=== PATIENT | female | born 1960 | race Caucasian/White ===

== ENCOUNTER 2020-07-09 08:30 | Day surgery (SDC) | payer BC ==
[~2020-07-09] VITALS: Ht 165.1 cm; Wt 57.9 kg
[2020-07-09 09:02] VITALS: BP 140/75
[2020-07-09] MEDS ORDERED: AMLO2.5T2 PO (09:19)
[2020-07-09] MEDS ORDERED: ONDA8TAB13 PO (09:19)
[2020-07-09] MEDS ORDERED: SITA100T11 PO (09:19)
[2020-07-09] MEDS ORDERED: DENO120V (09:19)
[2020-07-09 09:50] VITALS: BP 140/75
[2020-07-09 10:20] VITALS: BP 126/89
== END 2020-07-09 10:20 | disposition home or self-care (01) ==
LOC: SSTAY O 08:30
PROVIDERS: ATTEND Radiology Diagnostic Radiology
DX: J90 Pleural effusion, not elsewhere classified (principal); I10 Essential (primary) hypertension; C78.7 Secondary malignant neoplasm of liver and intrahepatic bile duct; Z85.3 Personal history of malignant neoplasm of breast; Z98.890 Other specified postprocedural states; Z88.8 Allergy status to other drugs, medicaments and biological substances; Z79.899 Other long term (current) drug therapy
CPT/HCPCS: 32555; 71045

== ENCOUNTER 2020-07-23 08:37 | Day surgery (SDC) | payer BC ==
[~2020-07-23] VITALS: Ht 165.1 cm; Wt 57.9 kg
[~2020-07-23 08:37] MED LIST: AMLO2.5T2 PO; DENO120V; ONDA8TAB13 PO; SITA100T11 PO
[2020-07-23 08:50] VITALS: BP 140/85
[2020-07-23] MEDS ORDERED: albumin 25% 100mL bottle x 1 IV PRN (09:10)
[2020-07-23 10:25] VITALS: BP 140/85
[2020-07-23 10:29] VITALS: BP 146/90
== END 2020-07-23 10:45 | disposition home or self-care (01) ==
LOC: SSTAY O 08:37
PROVIDERS: ATTEND Radiology Vascular & Interventional Radiology
DX: J90 Pleural effusion, not elsewhere classified (principal); C50.412 Malignant neoplasm of upper-outer quadrant of left female breast; C78.7 Secondary malignant neoplasm of liver and intrahepatic bile duct; I10 Essential (primary) hypertension; Z98.890 Other specified postprocedural states; Z88.8 Allergy status to other drugs, medicaments and biological substances; Z79.899 Other long term (current) drug therapy
CPT/HCPCS: 32555; 49083; 71045

== ENCOUNTER 2020-08-09 09:22 | Day surgery (SDC) | payer BC ==
[2020-08-09 09:55] VITALS: BP_SYST 134; BP_SYST 153; BP_DIAS 79; BP_DIAS 88
[2020-08-09 10:15] VITALS: BP 141/72
[2020-08-09] MEDS ORDERED: CALC-729 PO (10:17)
[2020-08-09] MEDS ORDERED: PROC-8 PO (10:17)
[2020-08-09] MEDS ORDERED: LORA10TA65 PO (10:17)
[2020-08-09] MEDS ORDERED: MAGN100T5 PO (10:17)
[2020-08-09 10:30] VITALS: BP 134/78
[2020-08-09 10:45] VITALS: BP 131/78
== END 2020-08-09 11:00 | disposition home or self-care (01) ==
LOC: SSTAY O 09:22
PROVIDERS: ATTEND Radiology Diagnostic Radiology
DX: J90 Pleural effusion, not elsewhere classified (principal); I10 Essential (primary) hypertension; Z85.3 Personal history of malignant neoplasm of breast; Z98.890 Other specified postprocedural states; Z88.8 Allergy status to other drugs, medicaments and biological substances; Z79.899 Other long term (current) drug therapy
CPT/HCPCS: 32555; 71045

== ENCOUNTER 2020-09-25 07:38 | Day surgery (SDC) | payer BC ==
[~2020-09-25] VITALS: Ht 165.1 cm; Wt 59.7 kg
[~2020-09-25 07:38] MED LIST changes: +CALC-729 PO; -DENO120V; +LORA10TA65 PO; +MAGN100T5 PO; +PROC-8 PO
[2020-09-25] MEDS ORDERED: albumin 25% 100mL bottle x 1 IV PRN (08:10)
[2020-09-25 08:15] VITALS: BP 144/76
[2020-09-25 08:50] VITALS: BP 144/76
[2020-09-25 08:55] VITALS: BP 148/81
[2020-09-25 09:15] VITALS: BP 139/78
[2020-09-25 09:30] VITALS: BP 143/75
== END 2020-09-25 09:40 | disposition home or self-care (01) ==
LOC: SSTAY O 07:38
PROVIDERS: ATTEND Radiology Vascular & Interventional Radiology
DX: J90 Pleural effusion, not elsewhere classified (principal); I10 Essential (primary) hypertension; C78.7 Secondary malignant neoplasm of liver and intrahepatic bile duct; Z88.8 Allergy status to other drugs, medicaments and biological substances; Z98.890 Other specified postprocedural states; Z79.899 Other long term (current) drug therapy; Z85.3 Personal history of malignant neoplasm of breast
CPT/HCPCS: 32555; 71045

== ENCOUNTER 2020-10-30 09:02 | Day surgery (SDC) | payer BC ==
[~2020-10-30] VITALS: Ht 165.1 cm; Wt 56.3 kg
[2020-10-30 09:33] VITALS: BP 136/86
[2020-10-30] MEDS ORDERED: albumin 25% 100mL bottle x 1 IV PRN (09:35)
[2020-10-30] MEDS ORDERED: CAPE500T15 PO (09:39)
[2020-10-30 09:50] VITALS: BP 133/77
[2020-10-30 10:00] VITALS: BP 133/77
[2020-10-30 10:15] VITALS: BP 133/72
[2020-10-30 10:30] VITALS: BP 148/86
[2020-10-30 10:45] VITALS: BP 136/84
== END 2020-10-30 11:05 | disposition home or self-care (01) ==
LOC: SSTAY O 09:02
PROVIDERS: ATTEND Radiology Vascular & Interventional Radiology
DX: J90 Pleural effusion, not elsewhere classified (principal); I10 Essential (primary) hypertension; C50.412 Malignant neoplasm of upper-outer quadrant of left female breast; C78.7 Secondary malignant neoplasm of liver and intrahepatic bile duct; Z98.890 Other specified postprocedural states; Z79.899 Other long term (current) drug therapy
CPT/HCPCS: 32554; 32555; 71045

== ENCOUNTER 2020-11-15 11:34 | Day surgery (SDC) | payer BC ==
[~2020-11-15] VITALS: Ht 165.1 cm; Wt 52.1 kg
[~2020-11-15 11:34] MED LIST changes: -CALC-729 PO; +CAPE500T15 PO
[2020-11-15] MEDS ORDERED: TRAM100T34 PO (12:40)
[2020-11-15 12:47] VITALS: BP 121/86
[2020-11-15 12:53] VITALS: BP 124/93
[2020-11-15 13:00] VITALS: BP 124/80
[2020-11-15] MEDS ORDERED: albumin 25% 100mL bottle x 1 IV PRN (13:00)
[2020-11-15 13:12] VITALS: BP 138/89
[2020-11-15 13:30] VITALS: BP 115/74
[2020-11-15 13:45] VITALS: BP 122/77
== END 2020-11-15 14:15 | disposition home or self-care (01) ==
LOC: SSTAY O 11:34
PROVIDERS: ATTEND Radiology Diagnostic Radiology
DX: J91.0 Malignant pleural effusion (principal); Z85.3 Personal history of malignant neoplasm of breast
CPT/HCPCS: 32555; 71045

== ENCOUNTER 2020-12-28 08:13 | Day surgery (SDC) | payer BC ==
[2020-12-28] VITALS (9 sets, daily range): BP systolic 127–151; BP diastolic 76–94
[~2020-12-28] VITALS: Ht 165.1 cm; Wt 58.1 kg
[~2020-12-28 08:13] MED LIST changes: +TRAM100T34 PO
[2020-12-28] MEDS ORDERED: albumin 25% 100mL bottle x 1 IV PRN (08:40)
[2020-12-28] MEDS ORDERED: tramadol PO (08:53)
[2020-12-28] MEDS ORDERED: TRIA15CR61 TP (08:53)
[2020-12-28] MEDS ORDERED: OMEP-50 PO (08:53)
== END 2020-12-28 11:15 | disposition home or self-care (01) ==
LOC: SSTAY O 08:13
PROVIDERS: ATTEND Radiology Vascular & Interventional Radiology
DX: R18.8 Other ascites (principal); J90 Pleural effusion, not elsewhere classified; I10 Essential (primary) hypertension; Z98.890 Other specified postprocedural states; Z88.8 Allergy status to other drugs, medicaments and biological substances; Z85.3 Personal history of malignant neoplasm of breast; Z79.899 Other long term (current) drug therapy
CPT/HCPCS: 32555; 49083; 71045; P9047

== ENCOUNTER 2021-01-18 08:17 | Day surgery (SDC) | payer BC ==
[2021-01-18] VITALS (8 sets, daily range): BP systolic 113–142; BP diastolic 69–94
[~2021-01-18] VITALS: Ht 165.1 cm; Wt 52.6 kg
[~2021-01-18 08:17] MED LIST changes: -CAPE500T15 PO; +OMEP-50 PO; +TRIA15CR61 TP; +tramadol PO
[2021-01-18] MEDS ORDERED: albumin 25% 100mL bottle x 1 IV PRN (08:40)
[2021-01-18] MEDS ORDERED: SPIR25TA5 PO (08:46)
[2021-01-18] MEDS ORDERED: [UNRECOGNIZED DRUG - OTHER] IV (08:46)
== END 2021-01-18 10:35 | disposition home or self-care (01) ==
LOC: SSTAY O 08:17
PROVIDERS: ATTEND Radiology Diagnostic Radiology
DX: R18.8 Other ascites (principal); I10 Essential (primary) hypertension; C78.7 Secondary malignant neoplasm of liver and intrahepatic bile duct; Z85.3 Personal history of malignant neoplasm of breast; Z88.8 Allergy status to other drugs, medicaments and biological substances; Z98.890 Other specified postprocedural states
CPT/HCPCS: 49083